=== PATIENT | female | born 1985 | race American Indian/Alaskan Native ===

== ENCOUNTER 2020-09-09 07:44 | Observation (INO) | payer OTHER ==
[2020-09-03 13:36] LABS: Basophils # (Auto) 0.1 K/mm3 (0.0-0.1); Basophils % (Auto) 0.8 % (0.0-1.8); Eosinophils # (Auto) 0.1 K/mm3 (0.0-0.4); Eosinophils % (Auto) 1.3 % (0.0-4.3); Hematocrit 44.5 % (30.3-42.9); Hemoglobin 14.8 gm/dl (10.1-14.3); Lymphocytes # (Auto) 2.5 K/mm3 (1.2-5.4); Lymphocytes % (Auto) 28.9 % (13.4-35.0); Mean Corpuscular HGB Conc 33 % (30-34); Mean Corpuscular Volume 84 fl (79-97); Monocytes # (Auto) 0.5 K/mm3 (0.0-0.8); Monocytes % (Auto) 6.3 % (0.0-7.3); Platelet Count 199 K/mm3 (140-440); Red Blood Count 5.28 M/mm3 (3.65-5.03); Red Cell Distribution Width 15.2 % (13.2-15.2)
[~2020-09-09 07:44] MED LIST: ACETAMINOPHEN 500 MG TAB PO SCH; GABAPENTIN 300 MG CAP PO NR; MIDAZOLAM 2 MG/2 ML INJ IV NR; SCOPOLAMINE TRANSDERMAL PATCH 72 HR TD NR
[2020-09-09] MEDS ORDERED: ceFAZolin/Water 2 GM/20 ML 2 GM/20 ML SYRINGE IV NR (08:00)
[2020-09-09] MEDS ORDERED: fentaNYL 100 MCG/2 ML INJ ONE (10:39)
[2020-09-09] MEDS ORDERED: propofoL 200 MG/20 ML VIAL IV ONE (10:39)
[2020-09-09] MEDS ORDERED: SUCCINYLCHOLINE CHLORIDE 200 MG/10 ML INJ MDV ONE (10:42)
[2020-09-09] MEDS ORDERED: dexAMETHasone 20 MG/5 ML VIAL ONE (10:42)
[2020-09-09] MEDS ORDERED: ONDANSETRON 4 MG/2 ML INJ ONE (10:42)
[2020-09-09] MEDS ORDERED: LIDOCAINE PF 100 MG/5 ML (CARDIAC SYRINGE) IV ONE (10:42)
[2020-09-09] MEDS: LACTATED RINGERS 1,000 ML IV SCH ×2 (10:55→14:28)
[2020-09-09] MEDS ORDERED: ONDANSETRON 4 MG/2 ML INJ IV PRN (11:00)
[2020-09-09] MEDS ORDERED: VASOPRESSIN 20 UNIT/1 ML INJ ONE (11:39)
[2020-09-09] MEDS ORDERED: SODIUM CHLORIDE 0.9% 100 ML ONE (11:39)
[2020-09-09] MEDS ORDERED: SODIUM CHLORIDE 0.9% 100 ML IVPB IV ONE (11:56)
[2020-09-09] MEDS ORDERED: VASOPRESSIN 20 UNIT/1 ML INJ IM ONE (11:56)
[2020-09-09] MEDS ORDERED: SODIUM CHLORIDE 0.9% IRR 1,500 ML BOTTLE IR ONE (11:56)
[2020-09-09] MEDS: HYDROmorphone 1 MG/1 ML INJ IV PRN ×6 (13:00→14:25)
[2020-09-09] MEDS ORDERED: oxyCODONE /ACETAMINOPHEN 5-325MG TAB PO ONE (16:17)
[2020-09-09] MEDS ORDERED: oxyCODONE /ACETAMINOPHEN 5-325MG TAB ONE (16:18)
[2020-09-09 16:31] VITALS: BP 112/63
== END 2020-09-09 17:20 | disposition home or self-care (01) ==
LOC: INTOOBSV 10:12 → 3A 10:12
PROVIDERS: ADMIT Obstetrics & Gynecology; ATTEND Obstetrics & Gynecology
DX: N87.9 Dysplasia of cervix uteri, unspecified (principal); D25.9 Leiomyoma of uterus, unspecified; G43.909 Migraine, unspecified, not intractable, without status migrainosus; Z79.899 Other long term (current) drug therapy; Z98.890 Other specified postprocedural states; Z87.442 Personal history of urinary calculi
CPT/HCPCS: 36415; 58260; 84703; 85025; 86850; 86900; 86901; 88307; 96374; 96375; 96376; G0378; G0379; J0330; J1100; J1170; J2001; J2250; J2405; J2704; J3010; J7120; 88309